=== PATIENT | female | born 1975 | race Asian ===

== ENCOUNTER → 2020-06-04 | Outpatient (CLI) | payer OTHER ==
--- NOTE | 2020-06-04 11:40 | RADIOLOGY REPORT (SQ) ---
EXAM DESCRIPTION: CHEST PA/LATERAL IMAGES COMPLETED DATE/TIME: 06/04/2020 11:33 am REASON FOR STUDY: LUNG NODULE COMPARISON: None. EXAM PARAMETERS: NUMBER OF VIEWS: two views TECHNIQUE: Digital Frontal and Lateral radiographic views of the chest acquired. RADIATION DOSE: NA LIMITATIONS: none FINDINGS: LUNGS AND PLEURA: No opacities, masses or pneumothorax. No pleural effusion. MEDIASTINUM AND HILAR STRUCTURES: No masses or contour abnormalities. HEART AND VASCULAR STRUCTURES: Heart normal size. No evidence for failure. BONES: No acute findings. HARDWARE: None in the chest. OTHER: No other significant finding. IMPRESSION: NO SIGNIFICANT RADIOGRAPHIC FINDING IN THE CHEST. TECHNICAL DOCUMENTATION: JOB ID: [id number] 2010 [employer]- All Rights Reserved Reading location - IP/workstation name: [email or web address]
== END ==
LOC: OD 11:21
PROVIDERS: ATTEND Nurse Practitioner Family
DX: R91.1 Solitary pulmonary nodule (principal)
CPT/HCPCS: 71046

== ENCOUNTER → 2020-06-11 | Outpatient (CLI) | payer OTHER | LOC: WI 12:38 | PROVIDERS: ATTEND Nurse Practitioner Family | DX: N63.0 Unspecified lump in unspecified breast (principal) | CPT/HCPCS: 77066 ==

== ENCOUNTER 2020-09-12 13:26 | Emergency (ER) | payer OTHER ==
--- NOTE | 2020-09-12 14:21 | ER Document Report ---
ED Medical Screen (RME) - General Chief Complaint: Congestion Stated Complaint: CONGESTION/WEAKNESS Time Seen by Provider: 09/12/20 14:14 Primary Care Provider: BRENDA BLANCO NP [NO LOCAL MD] - Follow up as needed Mode of Arrival: Ambulatory Information source: Patient Notes: 45-year-old female presents to ED for complaint of multiple symptoms. She states she has some head congestion stuffed nose stuffed ears dizziness blurred vision headache pain to the upper chest chills nausea. For the last 2 days. I have ordered flu strep chest x-ray and the Covid test. We have also ordered blood and urine and a visual acuity. Patient is alert oriented walked into the room with a even steady gait. The patient was evaluated during the global Covid 19 pandemic, and that diagnosis was suspected/considered upon their initial presentation. Their evaluation, treatment and testing was consistent with current guidelines for patients who present with complaints or symptoms that may be related to Covid 19. - HPI Quality of pain: Achy Severity: Severe Pain Level: 5 Associated Symptoms: Body/muscle aches, Chills, Dizzy/lightheaded, Headache, Shortness of breath, Sinus pain/drainage Similar symptoms previously: No - Related Data Smoking: Non-smoker Frequency of alcohol use: Occasional Drug Abuse: None Past Medical History - Social History Lives with: Family Family history: Reviewed & Not Pertinent - Past Medical History Cardiac Medical History: Reports: None Pulmonary Medical History: Reports: None EENT Medical History: Reports: None Neurological Medical History: Reports: None Endocrine Medical History: Reports: None Renal/ Medical History: Reports: None Malignancy Medical History: Reports: None GI Medical History: Reports: None Musculoskeltal Medical History: Reports None Skin Medical History: Reports None Psychiatric Medical History: Reports: None Traumatic Medical History: Reports: None Infectious Medical History: Reports: None Past Surgical History: Reports: Hx Breast Surgery - Centimeters left breast, Hx Cholecystectomy, Hx Genitourinary Surgery - Bladder sling - Immunizations Immunizations up to date: Yes Hx Diphtheria, Pertussis, Tetanus Vaccination: Yes - 2016 Physical Exam - Vital signs Vitals: Temp 98.2 F 09/12/20 13:26 Course - Vital Signs Vital signs: Temp Pulse Resp BP Pulse Ox 97.7 F 60 14 130/76 H 99 09/12/20 18:13 09/12/20 18:13 09/12/20 18:13 09/12/20 18:13 09/12/20 18:13 Doctor's Discharge - Discharge Clinical Impression: Acute sinusitis Condition: Stable Disposition: HOME, SELF-CARE Instructions: COVID-19 Guidance for Persons Under Investigation, Sinusitis ([facility]) Additional Instructions: Rest, plenty of fluids, See your doctor in follow up. Please return here for worsening or other problems or other concerns. Take the antibiotic as directed. Self isolate until you feel better. Your covid test was sent off and you will be notified of the result. Prescriptions: Fluconazole [Diflucan] 150 mg PO ONCE PRN #1 tablet PRN Reason: Azithromycin [Zithromax 250 mg Tablet] 250 mg PO DAILY #4 tablet Referrals: BRENDA BLANCO NP [NO LOCAL MD] - Follow up as needed
--- NOTE | 2020-09-12 15:21 | RADIOLOGY REPORT (SQ) ---
EXAM DESCRIPTION: CHEST SINGLE VIEW IMAGES COMPLETED DATE/TIME: 09/12/2020 3:13 pm REASON FOR STUDY: cough congestion COMPARISON: 06/04/2020 EXAM PARAMETERS: NUMBER OF VIEWS: One view. TECHNIQUE: Single frontal radiographic view of the chest acquired. RADIATION DOSE: NA LIMITATIONS: None. FINDINGS: LUNGS AND PLEURA: No opacities, masses or pneumothorax. No pleural effusion. MEDIASTINUM AND HILAR STRUCTURES: No masses. Contour normal. HEART AND VASCULAR STRUCTURES: Heart normal in size. Normal vasculature. BONES: No acute findings. HARDWARE: None in the chest. OTHER: No other significant finding. IMPRESSION: NO ACUTE RADIOGRAPHIC FINDING IN THE CHEST. TECHNICAL DOCUMENTATION: JOB ID: [id number] 2010 [employer]- All Rights Reserved Reading location - IP/workstation name: [email or web address]
--- NOTE | 2020-09-12 15:57 | ER Document Report ---
ED General - General Chief Complaint: Congestion Stated Complaint: CONGESTION/WEAKNESS Time Seen by Provider: 09/12/20 14:14 Primary Care Provider: BRENDA BLANCO NP [NO LOCAL MD] - Follow up as needed Mode of Arrival: Ambulatory Notes: 45 year old female has been sick for 24 hours. She has had nasal congestion, frontal headache and ear fullness. This all began in last 24 hours. Nothing seems to make this better or worse. No fever or chills. No known covid exposure. Healthy at baseline. Past Medical History - General Information source: Patient - Social History Smoking Status: Never Smoker Frequency of alcohol use: Occasional Drug Abuse: None Lives with: Family Family History: Reviewed & Not Pertinent - Past Medical History Cardiac Medical History: Reports: None Pulmonary Medical History: Reports: None EENT Medical History: Reports: None Neurological Medical History: Reports: None Endocrine Medical History: Reports: None Renal/ Medical History: Reports: None Malignancy Medical History: Reports: None GI Medical History: Reports: None Musculoskeletal Medical History: Reports None Skin Medical History: Reports None Psychiatric Medical History: Reports: None Traumatic Medical History: Reports: None Infectious Medical History: Reports: None Past Surgical History: Reports: Hx Breast Surgery - Centimeters left breast, Hx Cholecystectomy, Hx Genitourinary Surgery - Bladder sling - Immunizations Immunizations up to date: Yes Hx Diphtheria, Pertussis, Tetanus Vaccination: Yes - 2017 Review of Systems - Review of Systems Constitutional: No symptoms reported EENT: No symptoms reported Cardiovascular: No symptoms reported Respiratory: No symptoms reported Gastrointestinal: No symptoms reported Genitourinary: No symptoms reported Female Genitourinary: No symptoms reported Musculoskeletal: No symptoms reported Skin: No symptoms reported Hematologic/Lymphatic: No symptoms reported Neurological/Psychological: No symptoms reported Physical Exam - Vital signs Vitals: Temp 98.2 F 09/12/20 13:26 Interpretation: Normal - General General appearance: Appears well, Alert - HEENT Head: Normocephalic, Atraumatic Eyes: Normal Extraocular movements intact: Yes Sinus: Frontal, Maxillary - ttp over maxillary sinuses bilaterally Mucous membranes: Moist Pharynx: Normal - Respiratory Respiratory status: No respiratory distress Chest status: Nontender Breath sounds: Normal Chest palpation: Normal - Cardiovascular Rhythm: Regular Heart sounds: Normal auscultation Murmur: No - Abdominal Inspection: Normal Distension: No distension Bowel sounds: Normal Tenderness: Nontender Organomegaly: No organomegaly - Back Back: Normal, Nontender - Extremities General upper extremity: Normal inspection, Nontender, Normal color, Normal ROM, Normal temperature General lower extremity: Normal inspection, Nontender, Normal color, Normal ROM, Normal temperature, Normal weight bearing. No: Steven's sign - Neurological Neuro grossly intact: Yes Cognition: Normal Orientation: AAOx4 Crawford Coma Scale Eye Opening: Spontaneous Debbie Coma Scale Verbal: Oriented Debbie Coma Scale Motor: Obeys Commands Crawford Coma Scale Total: 15 Speech: Normal Motor strength normal: LUE, RUE, LLE, RLE Sensory: Normal - Psychological Associated symptoms: Normal affect, Normal mood - Skin Skin Temperature: Warm Skin Moisture: Dry Skin Color: Normal Course - Vital Signs Vital signs: Temp Pulse Resp BP Pulse Ox 97.7 F 60 14 130/76 H 99 09/12/20 18:13 09/12/20 18:13 09/12/20 18:13 09/12/20 18:13 09/12/20 18:13 Discharge - Discharge Clinical Impression: Acute sinusitis Qualifiers: Sinusitis location: maxillary Recurrence: non-recurrent Qualified Code(s): J01.00 - Acute maxillary sinusitis, unspecified Condition: Stable Disposition: HOME, SELF-CARE Instructions: COVID-19 Guidance for Persons Under Investigation, Sinusitis ([facility]) Additional Instructions: Rest, plenty of fluids, See your doctor in follow up. Please return here for worsening or other problems or other concerns. Take the antibiotic as directed. Self isolate until you feel better. Your covid test was sent off and you will be notified of the result. Prescriptions: Fluconazole [Diflucan] 150 mg PO ONCE PRN #1 tablet PRN Reason: Azithromycin [Zithromax 250 mg Tablet] 250 mg PO DAILY #4 tablet Referrals: BRENDA BLANCO NP [NO LOCAL MD] - Follow up as needed
[2020-09-12 17:34] LABS: A TYPE INFLUENZA AG NEGATIVE (NEGATIVE); B INFLUENZA AG NEGATIVE (NEGATIVE)
[2020-09-12] MEDS ORDERED: AZITHROMYCIN 250 MG TABLET PO ONE (17:44)
[2020-09-12 18:15] VITALS: BP 130/76
== END 2020-09-12 18:15 | disposition home or self-care (01) ==
LOC: ER 13:26
DX: J01.00 Acute maxillary sinusitis, unspecified (principal); R51.9 Headache, unspecified; Z90.49 Acquired absence of other specified parts of digestive tract; Z20.828 Contact with and (suspected) exposure to other viral communicable diseases
CPT/HCPCS: 99284; 87070; 87880; 87635; 87804; 71045; C9803

== ENCOUNTER → 2020-10-31 | Outpatient (CLI) | payer OTHER | LOC: OD 15:54 | PROVIDERS: ATTEND Otolaryngology | DX: J30.9 Allergic rhinitis, unspecified (principal) | CPT/HCPCS: 36415; 82785; 86003 ==